=== PATIENT | male | born 1960 | race Caucasian/White ===

== ENCOUNTER 2020-06-10 12:22 | Outpatient (CLI) | payer BC ==
[2020-06-11 04:20] LABS: SARS-CoV-2 PCR by NAA Not Detected (NotDetected)
== END 2020-06-10 12:23 | disposition home or self-care (01) ==
LOC: CSHLAB 12:22
PROVIDERS: ATTEND Surgery
DX: Z20.822 Contact with and (suspected) exposure to COVID-19 (principal); K40.90 Unilateral inguinal hernia, without obstruction or gangrene, not specified as recurrent
CPT/HCPCS: 87635; U0003; U0005

== ENCOUNTER 2020-06-13 05:44 | Day surgery (SDC) | payer BC ==
[2020-06-11 15:07] VITALS: BMI 26.4
[2020-06-13] MEDS ORDERED: Bupivacaine PF 0.5% 30 ML VIAL ONE (06:34)
[2020-06-13] MEDS ORDERED: EPINEPHrine 1 MG/ML AMP ONE (06:34)
[2020-06-13] MEDS ORDERED: Lidocaine 1% MPF 2 ML VIAL ONE (06:54)
[2020-06-13] MEDS ORDERED: Midazolam HCl 2 mg/2 ml Vial ONE ×2 (07:02→07:22)
[2020-06-13] MEDS ORDERED: PROPOFOL 20 ML ONE (07:22)
[2020-06-13] MEDS ORDERED: Fentanyl 100 MCG/2 ML VIAL ONE (07:22)
[2020-06-13] MEDS ORDERED: Dexamethasone 4 mg/ml Vial ONE (07:23)
[2020-06-13] MEDS ORDERED: Rocuronium Bromide 10 MG/ML (10ML VIAL) ONE (07:23)
[2020-06-13] MEDS ORDERED: Glycopyrrolate 0.2 MG/ML 5 ML SYRINGE ONE (07:23)
[2020-06-13] MEDS ORDERED: Ondansetron PF 4 MG/2 ML Vial ONE (07:23)
[2020-06-13] MEDS ORDERED: Lidocaine 1% PF 5 ML VIAL ONE (07:23)
[2020-06-13] MEDS ORDERED: Ketorolac Tromethamine 30 MG/ML VIAL ONE (07:52)
[2020-06-13] MEDS ORDERED: HYDROcodone/Acetaminophen 5/325 mg Tablet PO PRN (08:43)
[2020-06-13] MEDS ORDERED: HYDROcodone/Acetaminophen 5/325 mg Tablet ONE (09:40)
== END 2020-06-13 10:45 | disposition home or self-care (01) ==
LOC: CSHSDC 05:44
PROVIDERS: ATTEND Surgery
PROC: 0YU64JZ Supplement Left Inguinal Region with Synthetic Substitute, Percutaneous Endoscopic Approach (ICD-10-PCS; principal; 2020-06-13)
DX: K40.90 Unilateral inguinal hernia, without obstruction or gangrene, not specified as recurrent (principal); E78.5 Hyperlipidemia, unspecified; Z79.899 Other long term (current) drug therapy
CPT/HCPCS: J0171; J0690; J1100; J1885; J2250; J2405; J2704; J3010; S0020

== ENCOUNTER 2023-09-15 09:45 | Outpatient (CLI) | payer BC | END 2023-09-15 09:46 | disposition home or self-care (01) | LOC: CSHCT 09:45 | PROVIDERS: ATTEND Physician Assistant | DX: Z12.2 Encounter for screening for malignant neoplasm of respiratory organs (principal); F17.210 Nicotine dependence, cigarettes, uncomplicated | CPT/HCPCS: 71271 ==